=== PATIENT | female | born 1940 | race Caucasian/White ===

== ENCOUNTER 2020-04-29 15:00 | Outpatient (CLI) | payer OTHER ==
[~2020-04-29 15:00] MED LIST: HYDROCHLOROTH12.5 M1 PO
== END 2020-04-30 15:00 | disposition home or self-care (01) ==
LOC: PPH VACUNA 15:00
PROVIDERS: ATTEND Emergency Medicine Pediatric Emergency Medicine
DX: Z23 Encounter for immunization (principal)

== ENCOUNTER → 2021-01-14 | Outpatient (CLI) | payer OTHER | END | disposition home or self-care (01) | LOC: PPH VACUNA 08:40 | PROVIDERS: ATTEND Emergency Medicine Pediatric Emergency Medicine | DX: Z23 Encounter for immunization (principal) ==